=== PATIENT | male | born 1970 | race African-American/Black ===

== ENCOUNTER 2016-12-13 17:53 | Inpatient (IN) | payer MEDICAID ==
[~2016-12-13] VITALS: Ht 175.3 cm; Wt 98.4 kg
[2016-12-13] MEDS ORDERED: LORazepam 2 MG TABLET PO PRN (18:00)
[2016-12-13] MEDS ORDERED: ZOLPIDEM TARTRATE 10 MG TABLET PO PRN (18:00)
[2016-12-13] MEDS ORDERED: DiphenhydrAMINE HCL 50 MG/ML VIAL IM ONE (18:00)
[2016-12-13] MEDS ORDERED: HALOPERIDOL LACTATE 5 MG/ML VIAL IM ONE ×2 (18:00→18:15)
[2016-12-13] MEDS ORDERED: HALOPERIDOL 5 MG TABLET PO PRN (18:00)
[2016-12-13] MEDS ORDERED: LORazepam 2 MG/ML VIAL IM ONE (18:00)
[2016-12-13 18:12] VITALS: BP 135/77
[2016-12-13] MEDS ORDERED: INFLUENZA VIRUS VACCINE QVS 2016-17 (3YR+)/PF 60 MCG/0.5 ML SYRINGE IM ONE (18:30)
[2016-12-13 19:00] VITALS: BP 131/75
[2016-12-14 16:00] VITALS: BP 125/79
[2016-12-14] MEDS: ZIPRASIDONE HCL 20 MG CAPSULE PO SCH (17:00)
[2016-12-15] MEDS: ZIPRASIDONE HCL 20 MG CAPSULE PO SCH ×2 (06:35→17:00)
[2016-12-15 08:30] VITALS: BP 133/84
[2016-12-15] MEDS ORDERED: ARIP300S3 IM (10:19)
[2016-12-15 16:01] VITALS: BP 113/71
[2016-12-16 01:51] VITALS: BP 127/73
[2016-12-16] MEDS: ZIPRASIDONE HCL 20 MG CAPSULE PO SCH ×2 (06:30→17:00)
[2016-12-16 08:31] VITALS: BP 125/76
[2016-12-16 16:11] VITALS: BP 118/70
[2016-12-17 01:50] VITALS: BP 122/73
[2016-12-17] MEDS: ZIPRASIDONE HCL 20 MG CAPSULE PO SCH ×2 (06:26→17:00)
[2016-12-17 09:02] VITALS: BP 117/76
[2016-12-17 16:02] VITALS: BP 126/84
[2016-12-17] MEDS ORDERED: LORazepam 2 MG/ML VIAL ONE (23:59)
[2016-12-17] MEDS ORDERED: HALOPERIDOL LACTATE 5 MG/ML VIAL ONE (23:59)
[2016-12-17] MEDS ORDERED: DiphenhydrAMINE HCL 50 MG/ML VIAL ONE (23:59)
[2016-12-18 05:13] VITALS: BP 116/69
[2016-12-18] MEDS: ZIPRASIDONE HCL 20 MG CAPSULE PO SCH ×2 (06:15→17:00)
[2016-12-18 16:03] VITALS: BP 118/79
[2016-12-19] MEDS: ZIPRASIDONE HCL 20 MG CAPSULE PO SCH (06:14)
[2016-12-19 06:46] VITALS: BP 118/87
[2016-12-19 08:32] VITALS: BP 116/74
[2016-12-19] MEDS: ASENAPINE 10 MG SUBLINGUAL TABLET SL SCH ×2 (11:03→17:00)
[2016-12-19 16:00] VITALS: BP 136/91
[2016-12-20 05:41] VITALS: BP 109/87
[2016-12-20 08:04] VITALS: BP 125/83
[2016-12-20] MEDS: ASENAPINE 10 MG SUBLINGUAL TABLET SL SCH ×2 (09:00→17:00)
[2016-12-20 16:47] VITALS: BP 129/85
[2016-12-21 06:44] VITALS: BP 119/72
[2016-12-21 08:17] VITALS: BP 121/81
[2016-12-21] MEDS: ASENAPINE 10 MG SUBLINGUAL TABLET SL SCH ×2 (09:00→16:48)
[2016-12-21 16:19] VITALS: BP 131/89
[2016-12-22 04:53] VITALS: BP 136/92
[2016-12-22 08:04] VITALS: BP 109/76
[2016-12-22] MEDS: ASENAPINE 10 MG SUBLINGUAL TABLET SL SCH ×2 (09:00→17:00)
[2016-12-22 16:22] VITALS: BP 124/78
[2016-12-23 08:06] VITALS: BP 121/77
[2016-12-23] MEDS: ASENAPINE 10 MG SUBLINGUAL TABLET SL SCH ×2 (09:07→17:00)
[2016-12-23 16:00] VITALS: BP 129/80
[2016-12-24 06:17] VITALS: BP 122/79
[2016-12-24] MEDS: ASENAPINE 10 MG SUBLINGUAL TABLET SL SCH ×2 (08:16→17:00)
[2016-12-24 08:30] VITALS: BP 132/83
[2016-12-24 16:21] VITALS: BP 137/80
[2016-12-25 06:18] VITALS: BP 132/80
[2016-12-25 08:44] VITALS: BP 114/80
[2016-12-25] MEDS: ASENAPINE 10 MG SUBLINGUAL TABLET SL SCH ×2 (08:54→16:28)
[2016-12-25 16:29] VITALS: BP 115/89
[2016-12-26 06:15] VITALS: BP 134/73
[2016-12-26] MEDS: ASENAPINE 10 MG SUBLINGUAL TABLET SL SCH ×2 (09:00→16:16)
[2016-12-26 16:29] VITALS: BP 124/71
[2016-12-27 06:38] VITALS: BP 118/79
[2016-12-27 08:15] VITALS: BP 113/74
[2016-12-27] MEDS: ASENAPINE 10 MG SUBLINGUAL TABLET SL SCH ×2 (09:00→16:31)
[2016-12-28 07:08] VITALS: BP 138/69
[2016-12-28] MEDS: ASENAPINE 10 MG SUBLINGUAL TABLET SL SCH ×2 (08:29→16:41)
[2016-12-28] MEDS ORDERED: ARIPIPRAZOLE IM SCH (09:00)
[2016-12-28] MEDS ORDERED: [UNRECOGNIZED DRUG - OTHER] IM SCH (09:00)
[2016-12-28 16:00] VITALS: BP 116/90
[2016-12-29 07:08] VITALS: BP 120/79
[2016-12-29 08:38] VITALS: BP 123/85
[2016-12-29] MEDS: ASENAPINE 10 MG SUBLINGUAL TABLET SL SCH ×2 (08:40→17:00)
[2016-12-29 16:00] VITALS: BP 133/74
[2016-12-30 07:15] VITALS: BP 131/82
[2016-12-30 08:28] VITALS: BP 149/84
[2016-12-30] MEDS: ASENAPINE 10 MG SUBLINGUAL TABLET SL SCH ×2 (08:42→16:43)
[2016-12-31 02:04] VITALS: BP 120/81
[2016-12-31 08:25] VITALS: BP 152/82
[2016-12-31] MEDS: ASENAPINE 10 MG SUBLINGUAL TABLET SL SCH ×2 (08:59→17:00)
[2016-12-31 16:00] VITALS: BP 139/83
[2016-12-31] MEDS ORDERED: ASEN10TA8 SL (16:41)
== END 2016-12-31 17:30 | disposition home or self-care (01) | DRG 750 ==
LOC: B3A 18:12
PROVIDERS: ATTEND Psychiatry & Neurology Child & Adolescent Psychiatry
DX: F20.0 Paranoid schizophrenia (principal); F41.9 Anxiety disorder, unspecified; Z28.21 Immunization not carried out because of patient refusal
CPT/HCPCS: J0401; J1200; J1630; J2060